=== PATIENT | female | born 1960 ===

== ENCOUNTER → 2018-09-05 22:49 | Outpatient (REF) | payer OTHER, SELFPAY ==
[2018-09-05 23:18] LABS: Alanine Aminotransferase 43 IU/L (9-52); Albumin Globulin Ratio 1.5 (1.0-2.8); Alkaline Phosphatase 115 U/L (38-126); Aspartate Aminotransferase 25 IU/L (14-36); Bilirubin Total 0.6 mg/dL (0.2-1.3); Blood Urea Nitrogen 16 mg/dL (7-17); C-Reactive Protein Quant 1.5 mg/dL (<1.0); Calcium 9.8 mg/dL (8.4-10.2); Carbon Dioxide 24 mmol/L (22-32); Chloride 105 mmol/L (98-107); Estimated Glomerular Filt Rate > 60.0 mL/min (>60); Globulin 2.6 g/dL (1.7-4.1); Glucose 95 mg/dL (80-110); HEMOLYSIS < 15 (0-50); Potassium 4.4 mmol/L (3.4-5.1); Sodium 143 mmol/L (137-145); Total Protein 6.6 g/dL (6.3-8.2)
[2018-09-05 23:23] LABS: Add Manual Diff / Slide Review NO; Basophils Percent Auto 0.8 % (0-2); Eosinophils Percent Auto 2.6 % (2-4); Hematocrit 43.6 % (36-46); Hemoglobin 14.8 g/dL (12.0-16.0); Lymphocytes Percent Auto 13.4 % (25-40); Mean Corpuscular Hemoglobin 28.1 PG (26-34); Mean Corpuscular Volume 82.5 fL (80-100); Monocytes Percent Auto 6.1 % (3-14); Neutrophils Absolute Auto 7900 /uL (3000-5900); Neutrophils Percent Auto 77.1 % (50-75); Platelet Count 193 X10^3/uL (150-400); Red Blood Cell Count 5.28 X10^6/uL (4.0-5.2); Red Cell Distribution Width 15.7 % (11.6-14.8); White Blood Cell Count 10.3 X10^3/uL (4.5-11.0)
[2018-09-06 00:56] LABS: Iron 68 ug/dL (37-170)
[2018-09-06 01:24] LABS: Free T3, Triiodothyronine Free 2.91 pg/mL (2.77-5.27); Free T4, Direct Thyroxine 0.87 ng/dL (0.78-2.19)
[2018-09-06 01:28] LABS: Hemoglobin A1C% w Est Avg Glu 5.5 % (4.0-6.0)
[2018-09-06 01:37] LABS: Thyroid Stimulating Hormone 1.96 uIU/mL (0.47-4.68)
[2018-09-07 14:07] LABS: Anti Thyroglobulin Antibody 2 IU/mL (< 2); Thyroid Peroxidase Antibodies > 900 IU/mL (< 9)
[2018-09-07 14:27] LABS: Triiodothyronine T3 Total 107 ng/dL (76-181)
== END ==
LOC: LAB 22:49
PROVIDERS: Visit Provider Naturopath
DX: E06.3 Autoimmune thyroiditis (principal); I51.7 Cardiomegaly; R79.82 Elevated C-reactive protein (CRP); R60.9 Edema, unspecified; E88.81 Metabolic syndrome and other insulin resistance
CPT/HCPCS: 80053; 83036; 83540; 84439; 84443; 84480; 84481; 85025; 86140; 86376; 86800